=== PATIENT | female | born 1995 | race Caucasian/White ===

== ENCOUNTER 2022-10-20 09:51 | Emergency (ER) | payer BC ==
[2022-10-20] MEDS ORDERED: Ondansetron 4 MG Tab.DIS PO STA (10:17)
[2022-10-20] MEDS ORDERED: Acetaminophen 500 MG Tab PO STA (10:18)
[2022-10-20] MEDS ORDERED: Sodium Chloride 0.9% 1,000 ML IV ONE (12:44)
== END 2022-10-20 11:20 | disposition critical access hospital (66) ==
LOC: CC.ED 09:51
DX: O03.9 Complete or unspecified spontaneous abortion without complication (principal); Z88.2 Allergy status to sulfonamides
CPT/HCPCS: 36415; 80053; 84702; 85025; 86850; 86900; 86901; 99284; 99285; A9270; J7030